=== PATIENT | male | born 1970 | race African-American/Black ===

== ENCOUNTER 2019-09-27 13:26 | Emergency (ER) | payer SELFPAY ==
[~2019-09-27] VITALS: Ht 188 cm; Wt 100.0 kg
[2019-09-27 14:30] VITALS: BP 124/87
[2019-09-27] MEDS ORDERED: IBUPROFEN 400 MG TABLET PO ONE (14:30)
[2019-09-27] MEDS ORDERED: DiphenhydrAMINE HCL 25 MG CAPSULE PO ONE (14:30)
== END 2019-09-27 14:54 | disposition home or self-care (01) ==
LOC: EMS 13:27
DX: S61.452A Open bite of left hand, initial encounter (principal); W54.0XXA Bitten by dog, initial encounter; Y93.89 Activity, other specified; Y92.89 Other specified places as the place of occurrence of the external cause; Y99.8 Other external cause status